=== PATIENT | female | born 1955 | race American Indian/Alaskan Native ===

== ENCOUNTER 2017-04-02 10:17 | Emergency (ER) | payer OTHER ==
[~2017-04-02] VITALS: Ht 167.6 cm; Wt 87.0 kg
[~2017-04-02 10:17] MED LIST: ACET-1600 PO; ALPR0.254 PO; CHOL10002; CHOL10002 PO; EZET1TAB5 PO; GLIM4TAB2 PO; INSU100I13 IJ; INSU100I13 SC; INSU100I17 IJ; INSULIN NOVALOG SC; LISI-167 PO; LISI40TA PO; METF10002 PO
[2017-04-02 10:58] LABS: PH, VENOUS 7.408 pH (7.320-7.420)
[2017-04-02 10:59] LABS: HEMATOCRIT 47.8 % (34.6-47.8); HEMOGLOBIN 15.6 g/dL (11.7-16.4); WHITE BLOOD COUNT 6.8 x10^3/uL (3.4-10)
[2017-04-02] MEDS ORDERED: SODIUM CHLORIDE 0.9% 1,000ML IVBOLUS ONE ×2 (11:00→12:30)
[2017-04-02] MEDS ORDERED: ONDANSETRON 2MG/ML, 2ML IVPush ONE (11:00)
[2017-04-02 11:11] LABS: ASPARTATE AMINO TRANSFERASE 25 U/L (15-37); BLOOD UREA NITROGEN 9 mg/dL (7-18)
[2017-04-02] MEDS ORDERED: ONDANSETRON 2MG/ML, 2ML ONE (11:40)
[2017-04-02 15:01] VITALS: BP 116/60
== END 2017-04-02 15:04 | disposition home or self-care (01) ==
LOC: ED 11:25
DX: R19.7 Diarrhea, unspecified (principal); R11.0 Nausea; I10 Essential (primary) hypertension; E11.9 Type 2 diabetes mellitus without complications; K21.9 Gastro-esophageal reflux disease without esophagitis
CPT/HCPCS: 31500; 36415; 74020; 80053; 81001; 82010; 82803; 82962; 85025; 87086; 87147; 96361; 96374; 99285; J2405; J7030

== ENCOUNTER 2020-07-28 16:57 | Inpatient (IN) | payer OTHER ==
[~2020-07-28] VITALS: Ht 165.1 cm; Wt 93.1 kg
[~2020-07-28 16:57] MED LIST changes: -ACET-1600 PO; +EZET1TAB35 PO; -EZET1TAB5 PO; -GLIM4TAB2 PO; +GLIM4TAB8 PO
[2020-07-28] MEDS ORDERED: SODIUM CHLORIDE 0.9% 1,000 ML IV SCH (17:30)
--- NOTE | 2020-07-28 17:39 | NUR ---
PT C/O FEELING WEAK. PT HAD A COLD RIGHT BEFORE . PT STARTED TO FEEL BETTER BUT HAS SINCE STARTED TO FEEL WEAKER. PT HAD A RECENT FEVER AND TREATED AT HOME WITH TYLENOL. PT HAD A COUGH BUT THAT STOPPED A WEEK AGO.
[2020-07-28 17:41] LABS: PLATELET (DIC) 542 x10^3/uL (130-400)
[2020-07-28 17:42] LABS: MEAN CORPUSCULAR HEMOGLOBIN 27.9 pg (27.0-34.8); MEAN CORPUSCULAR HGB CONC 32.8 g/dL (32.4-35.8); MEAN PLATELET VOLUME 7.1 fL (7.4-10.4); PLATELET COUNT 553 x10^3/uL (130-400); RED BLOOD COUNT 5.25 x10^6/uL (3.82-5.3); RED CELL DISTRIBUTION WIDTH 15.4 % (9.6-15.2)
[2020-07-28 17:54] LABS: ALBUMIN 2.1 g/dL (3.4-5.0); ANION GAP 14 mmol/L (5-15); CALCIUM 7.5 mg/dL (8.5-10.1); CHLORIDE 93 mmol/L (98-107)
[2020-07-28 17:58] LABS: ALANINE AMINOTRANSFERASE 35 U/L (12-78); ALKALINE PHOSPHATASE 123 U/L (45-117); BILIRUBIN,TOTAL 0.7 mg/dL (0.2-1.0); CREATININE 0.92 mg/dL (0.55-1.02); TOTAL PROTEIN 8.1 g/dL (6.4-8.2)
[2020-07-28 18:22] LABS: D-DIMER (DIC) > 35.20 ug/mlFEU (0.00-0.52); FIBRINOGEN 535 mg/dL (200-340); PROTIME 11.3 Seconds (9.6-11.5); PTT 27 Seconds (25-31)
[2020-07-28] MEDS ORDERED: CEFTRIAXONE PMX 1GM/50ML 50 ML IV ONE (18:30)
[2020-07-28] MEDS ORDERED: AZITHROMYCIN 500 MG in SODIUM CHLORIDE 0.9% 250 ML IV ONE (18:30)
[2020-07-28] MEDS ORDERED: INSULIN REGULAR 100 UNITS/ML, 3ML VIAL SQ-INSULIN SCH (18:30)
[2020-07-28] MEDS ORDERED: CEFTRIAXONE PMX 1GM/50ML 50 ML ONE (18:40)
[2020-07-28 18:53] LABS: MD YES
[2020-07-28 18:55] LABS: <PLATELET ESTIMATE> INCREASED; <PLT MORPHOLOGY> NORMAL PLT MORPH; ANISOCYTOSIS 1+; BANDS%(MANUAL) 11 % (0-7); EOS#(MANUAL) 0.16 x10^3/uL (0.0-0.4); EOS% (MANUAL) 2 % (1-7); LYMPH#(MANUAL) 0.82 x10^3/uL (1-3.4); LYMPHS% (MANUAL) 10 % (22-44); MONOS#(MANUAL) 0.33 x10^3/uL (0.3-2.7); MONOS% (MANUAL) 4 % (2-9); MYELOCYTES# (MANUAL) 0.41 x10^3/uL (0-0); MYELOCYTES% (MANUAL) 5 % (0-0); POLYCHROMASIA 1+; SEG#(MANUAL) 5.58 x10^3/uL (1.8-6.8); SEGS% (MANUAL) 68 % (42-75); SPHEROCYTES 1+
[2020-07-28] MEDS ORDERED: ENOXAPARIN 100 MG/ML SQ SCH (19:00)
--- NOTE | 2020-07-28 19:04 | NUR ---
report from Arabella PACHECO
[2020-07-28] MEDS ORDERED: ACETAMINOPHEN 325 MG TABLET PO PRN (19:30)
[2020-07-28] MEDS ORDERED: POLYETHYLENE GLYCOL 17 GM PACKET PO PRN (19:30)
[2020-07-28] MEDS ORDERED: ONDANSETRON ODT 4 MG PO PRN (19:30)
[2020-07-28] MEDS ORDERED: BISACODYL 10 MG SUPP PR PRN (19:30)
[2020-07-28] MEDS ORDERED: GUAIFENESIN/DM 200-20MG, 10ML UDC PO PRN (19:30)
[2020-07-28] MEDS ORDERED: INSULIN SINGLE DOSE, ER ONE (19:38)
[2020-07-28] MEDS ORDERED: ENOXAPARIN 40 MG/0.4 ML ONE (19:38)
[2020-07-28] MEDS ORDERED: ENOXAPARIN 100 MG/ML ONE (19:42)
--- NOTE | 2020-07-28 20:05 | NUR ---
per dr hoskins dc 15 units regular insulin since [facility] has seen pt. pts blood sugar 436. [facility] meme rahman stated no need to get stat glucose from lab draw, give 20 units humalog pen now and continue sliding scale. order verified. humalog slip request sent to lab and phone call placed.
--- NOTE | 2020-07-28 20:16 | NUR ---
TASK RN. 20 UNITS OF HUMALOG INSULIN PEN VERIFIED WITH PRIMARY RN KD LAZARO. PRIMARY RN TO ADMIN MED TO PT
[2020-07-28] MEDS: INSULIN LISPRO 100 UNITS/ML, PEN SQ-INSULIN SCH (20:19)
[2020-07-28 20:25] LABS: ESTIMATED AVERAGE GLUCOSE 355 mg/dL (0-126)
[2020-07-28 20:35] LABS: FREE T4 (FREE THYROXINE) 0.63 ng/dL (0.76-1.46)
--- NOTE | 2020-07-28 20:53 | NUR ---
report given to kirk chapin
--- NOTE | 2020-07-28 21:03 | NUR ---
iv fluids still infusing for admit
[2020-07-28] MEDS ORDERED: DEXAMETHASONE 4 MG/ML, 1ML IVPush ONE (21:15)
[2020-07-28] MEDS ORDERED: DEXAMETHASONE 4 MG/ML, 5ML ONE ×2 (21:36→21:43)
[2020-07-28] MEDS: metFORMIN 500 MG TABLET PO SCH (22:09)
[2020-07-28] MEDS: GLIMEPIRIDE 4 MG TABLET PO SCH (22:18)
[2020-07-28 22:26] VITALS: BP 94/60
[2020-07-28] MEDS ORDERED: OMNIPAQUE 350 MG/ML, 100ML BOTTLE ONE (23:00)
[2020-07-29 01:15] VITALS: BP 97/63
[2020-07-29] MEDS: SODIUM CHLORIDE 0.9% 1,000 ML IV SCH ×3 (01:38→17:10)
[2020-07-29 05:16] LABS: MEAN CORPUSCULAR HEMOGLOBIN 28.3 pg (27.0-34.8); MEAN CORPUSCULAR HGB CONC 33.3 g/dL (32.4-35.8); MEAN PLATELET VOLUME 7.2 fL (7.4-10.4); PLATELET COUNT 519 x10^3/uL (130-400); RED BLOOD COUNT 4.67 x10^6/uL (3.82-5.3); RED CELL DISTRIBUTION WIDTH 15.6 % (9.6-15.2)
[2020-07-29 05:31] LABS: CHLORIDE 97 mmol/L (98-107)
[2020-07-29 05:39] LABS: ANION GAP 10 mmol/L (5-15); CALCIUM 7.3 mg/dL (8.5-10.1); CREATININE 0.88 mg/dL (0.55-1.02)
[2020-07-29 05:53] LABS: MD YES
[2020-07-29 05:55] LABS: ANISOCYTOSIS 1+; BAND#(MANUAL) 0.47 x10^3/uL; BANDS%(MANUAL) 5 % (0-7); LYMPH#(MANUAL) 1.02 x10^3/uL (1-3.4); LYMPHS% (MANUAL) 11 % (22-44); METAMYELOCYTES# (MANUAL) 0.19 x10^3/uL (0-0); METAMYELOCYTES% (MANUAL) 2 % (0-1); MONOS#(MANUAL) 0.19 x10^3/uL (0.3-2.7); MONOS% (MANUAL) 2 % (2-9); MYELOCYTES# (MANUAL) 0.09 x10^3/uL (0-0); MYELOCYTES% (MANUAL) 1 % (0-0); POLYCHROMASIA 1+; SEG#(MANUAL) 7.35 x10^3/uL (1.8-6.8); SEGS% (MANUAL) 79 % (42-75)
[2020-07-29 05:56] LABS: <PLATELET ESTIMATE> INCREASED; <PLT MORPHOLOGY> NORMAL PLT MORPH
[2020-07-29 07:03] VITALS: BP 102/63
[2020-07-29] MEDS: INSULIN LISPRO 100 UNITS/ML, PEN SQ-INSULIN SCH ×4 (08:09→20:19)
[2020-07-29] MEDS: SENNA/DOCUSATE TABLET PO SCH (09:00)
[2020-07-29] MEDS: metFORMIN 500 MG TABLET PO SCH (10:00)
[2020-07-29] MEDS: LISINOPRIL 40 MG TABLET PO SCH (10:00)
[2020-07-29] MEDS: EZETIMIBE 10 MG TABLET PO SCH (10:00)
[2020-07-29] MEDS: SIMVASTATIN 40 MG TABLET PO SCH (10:00)
[2020-07-29] MEDS: INSULIN GLARGINE 100 UNITS/ML, PEN SQ-INSULIN SCH (10:01)
[2020-07-29] MEDS: CHOLECALCIFEROL 1,000 UNIT TABLET PO SCH (10:02)
[2020-07-29] MEDS: GLIMEPIRIDE 4 MG TABLET PO SCH ×2 (10:02→19:54)
[2020-07-29] MEDS: ENOXAPARIN 100 MG/ML SQ SCH ×2 (10:02→21:07)
[2020-07-29 14:13] VITALS: BP 100/62
[2020-07-29] MEDS ORDERED: INSULIN REGULAR 100 UNITS/ML, 3ML VIAL SQ-INSULIN ONE (15:30)
[2020-07-29] MEDS: CEFTRIAXONE PMX 1GM/50ML 50 ML IV SCH (18:38)
[2020-07-29] MEDS ORDERED: DEXAMETHASONE 4 MG/ML, 5ML ONE (19:47)
[2020-07-29] MEDS: DEXAMETHASONE 4 MG/ML, 1ML IVPush SCH (19:55)
[2020-07-29] MEDS: AZITHROMYCIN 500 MG in SODIUM CHLORIDE 0.9% 250 ML IV SCH (20:19)
[2020-07-29 20:32] VITALS: BP 102/60
[2020-07-30 00:13] VITALS: BP 105/64
[2020-07-30] MEDS: MELATONIN 5 MG TABLET PO PRN ×2 (00:46→21:50)
[2020-07-30] MEDS: SODIUM CHLORIDE 0.9% 1,000 ML IV SCH ×3 (02:25→19:00)
[2020-07-30] MEDS: THYROID 30 MG TABLET PO SCH (05:52)
[2020-07-30 07:19] LABS: BASOPHILS % (AUTO) 1 % (0-1); EOSINOPHILS % (AUTO) 0 % (1-7); LYMPHOCYTES % (AUTO) 11 % (22-44); MEAN CORPUSCULAR HEMOGLOBIN 28.2 pg (27.0-34.8); MEAN CORPUSCULAR HGB CONC 33.4 g/dL (32.4-35.8); MEAN PLATELET VOLUME 7.3 fL (7.4-10.4); MONOCYTES % (AUTO) 7 % (2-9); NEUTROPHILS % (AUTO) 81 % (42-75); PLATELET COUNT 510 x10^3/uL (130-400); RED BLOOD COUNT 4.34 x10^6/uL (3.82-5.3); RED CELL DISTRIBUTION WIDTH 15.2 % (9.6-15.2)
[2020-07-30 07:26] LABS: MD NO
[2020-07-30 07:29] LABS: ANION GAP 7 mmol/L (5-15); CALCIUM 7.2 mg/dL (8.5-10.1); CHLORIDE 104 mmol/L (98-107)
[2020-07-30 07:32] LABS: ALANINE AMINOTRANSFERASE 27 U/L (12-78); ALKALINE PHOSPHATASE 106 U/L (45-117); BILIRUBIN,TOTAL 0.3 mg/dL (0.2-1.0); TOTAL PROTEIN 6.8 g/dL (6.4-8.2)
[2020-07-30] MEDS: INSULIN LISPRO 100 UNITS/ML, PEN SQ-INSULIN SCH ×4 (07:32→21:50)
[2020-07-30 07:33] LABS: BILIRUBIN, DIRECT < 0.1 mg/dL (0.1-0.2); BILIRUBIN,INDIRECT 0.2 mg/dL (0.0-2.0)
[2020-07-30 07:39] VITALS: BP 113/72
[2020-07-30] MEDS ORDERED: REMDESIVIR 200 MG in SODIUM CHLORIDE 0.9% 250 ML IVPB ONE (08:00)
[2020-07-30] MEDS ORDERED: DEXAMETHASONE 4 MG/ML, 5ML ONE (08:15)
[2020-07-30] MEDS: INSULIN GLARGINE 100 UNITS/ML, PEN SQ-INSULIN SCH (08:26)
[2020-07-30] MEDS: SENNA/DOCUSATE TABLET PO SCH (08:27)
[2020-07-30] MEDS: SIMVASTATIN 40 MG TABLET PO SCH (08:27)
[2020-07-30] MEDS: ENOXAPARIN 100 MG/ML SQ SCH ×2 (08:27→20:54)
[2020-07-30] MEDS: CHOLECALCIFEROL 1,000 UNIT TABLET PO SCH (08:27)
[2020-07-30] MEDS: LISINOPRIL 40 MG TABLET PO SCH (08:28)
[2020-07-30] MEDS: GLIMEPIRIDE 4 MG TABLET PO SCH ×2 (08:28→20:54)
[2020-07-30] MEDS: EZETIMIBE 10 MG TABLET PO SCH (08:28)
[2020-07-30 13:27] VITALS: BP 101/72
[2020-07-30] MEDS: CEFTRIAXONE PMX 1GM/50ML 50 ML IV SCH (18:27)
[2020-07-30 18:44] VITALS: BP 110/70
[2020-07-30] MEDS: DEXAMETHASONE 4 MG/ML, 1ML IVPush SCH (20:07)
[2020-07-30] MEDS: AZITHROMYCIN 500 MG in SODIUM CHLORIDE 0.9% 250 ML IV SCH (20:07)
[2020-07-30] MEDS ORDERED: INSULIN GLARGINE 100 UNITS/ML, PEN SQ-INSULIN SCH (21:00)
[2020-07-31 00:49] VITALS: BP 108/75
[2020-07-31] MEDS: SODIUM CHLORIDE 0.9% 1,000 ML IV SCH ×2 (03:00→15:29)
[2020-07-31] MEDS: THYROID 30 MG TABLET PO SCH (05:06)
[2020-07-31 06:31] LABS: CHLORIDE 107 mmol/L (98-107)
[2020-07-31 06:42] LABS: ALANINE AMINOTRANSFERASE 25 U/L (12-78); ALKALINE PHOSPHATASE 88 U/L (45-117); ANION GAP 6 mmol/L (5-15); BILIRUBIN,TOTAL 0.3 mg/dL (0.2-1.0); CALCIUM 7.2 mg/dL (8.5-10.1); CREATININE 0.49 mg/dL (0.55-1.02); TOTAL PROTEIN 6.4 g/dL (6.4-8.2)
[2020-07-31] MEDS: INSULIN LISPRO 100 UNITS/ML, PEN SQ-INSULIN SCH ×4 (07:38→20:57)
[2020-07-31 08:38] VITALS: BP 116/76
[2020-07-31] MEDS: EZETIMIBE 10 MG TABLET PO SCH (08:43)
[2020-07-31] MEDS: LISINOPRIL 40 MG TABLET PO SCH (08:43)
[2020-07-31] MEDS: REMDESIVIR 100 MG in SODIUM CHLORIDE 0.9% 250 ML IVPB SCH (08:43)
[2020-07-31] MEDS: CHOLECALCIFEROL 1,000 UNIT TABLET PO SCH (08:43)
[2020-07-31] MEDS: SIMVASTATIN 40 MG TABLET PO SCH (08:43)
[2020-07-31] MEDS: SENNA/DOCUSATE TABLET PO SCH (08:43)
[2020-07-31] MEDS: GLIMEPIRIDE 4 MG TABLET PO SCH ×2 (08:43→20:48)
[2020-07-31] MEDS: ENOXAPARIN 100 MG/ML SQ SCH ×2 (08:45→20:49)
[2020-07-31] MEDS ORDERED: INSULIN GLARGINE 100 UNITS/ML, PEN SQ-INSULIN SCH ×2 (09:00→21:00)
[2020-07-31 13:34] VITALS: BP 123/81
[2020-07-31] MEDS: CEFTRIAXONE PMX 1GM/50ML 50 ML IV SCH (18:02)
[2020-07-31 18:39] VITALS: BP 138/82
[2020-07-31] MEDS: DEXAMETHASONE 4 MG/ML, 1ML IVPush SCH (20:48)
[2020-07-31] MEDS: AZITHROMYCIN 500 MG in SODIUM CHLORIDE 0.9% 250 ML IV SCH (20:50)
[2020-07-31] MEDS: MELATONIN 5 MG TABLET PO PRN (23:59)
[2020-08-01 00:26] VITALS: BP 118/76
[2020-08-01] MEDS: THYROID 30 MG TABLET PO SCH (05:29)
[2020-08-01 06:35] LABS: CHLORIDE 103 mmol/L (98-107)
[2020-08-01 06:42] LABS: ALANINE AMINOTRANSFERASE 35 U/L (12-78); ALBUMIN 2.3 g/dL (3.4-5.0); ALKALINE PHOSPHATASE 87 U/L (45-117); ANION GAP 6 mmol/L (5-15); BILIRUBIN,TOTAL 0.4 mg/dL (0.2-1.0); CREATININE 0.59 mg/dL (0.55-1.02); TOTAL PROTEIN 7.1 g/dL (6.4-8.2)
[2020-08-01 07:10] VITALS: BP 130/81
[2020-08-01] MEDS: INSULIN LISPRO 100 UNITS/ML, PEN SQ-INSULIN SCH ×4 (07:34→20:38)
[2020-08-01 08:42] LABS: C-REACTIVE PROTEIN, QUANT 2.07 mg/dL (0.02-0.49)
[2020-08-01] MEDS: REMDESIVIR 100 MG in SODIUM CHLORIDE 0.9% 250 ML IVPB SCH (08:42)
[2020-08-01] MEDS: EZETIMIBE 10 MG TABLET PO SCH (08:42)
[2020-08-01] MEDS: CHOLECALCIFEROL 1,000 UNIT TABLET PO SCH (08:42)
[2020-08-01] MEDS: SIMVASTATIN 40 MG TABLET PO SCH (08:43)
[2020-08-01] MEDS: GLIMEPIRIDE 4 MG TABLET PO SCH ×2 (08:44→20:38)
[2020-08-01] MEDS: SENNA/DOCUSATE TABLET PO SCH (08:44)
[2020-08-01] MEDS: LISINOPRIL 40 MG TABLET PO SCH (08:44)
[2020-08-01] MEDS: ENOXAPARIN 100 MG/ML SQ SCH ×2 (08:44→20:42)
[2020-08-01] MEDS: INSULIN GLARGINE 100 UNITS/ML, PEN SQ-INSULIN SCH (08:46)
[2020-08-01 09:10] LABS: D-DIMER 3.48 ug/mlFEU (0.00-0.52)
[2020-08-01 12:49] VITALS: BP 101/66
[2020-08-01] MEDS: CEFTRIAXONE PMX 1GM/50ML 50 ML IV SCH (18:39)
[2020-08-01 19:45] VITALS: BP 110/73
[2020-08-01] MEDS: AZITHROMYCIN 500 MG in SODIUM CHLORIDE 0.9% 250 ML IV SCH (19:52)
[2020-08-01] MEDS: DEXAMETHASONE 4 MG/ML, 1ML IVPush SCH (19:52)
[2020-08-01] MEDS: MELATONIN 5 MG TABLET PO PRN (20:38)
[2020-08-01] MEDS ORDERED: INSULIN GLARGINE 100 UNITS/ML, PEN SQ-INSULIN SCH (21:00)
[2020-08-02 02:42] VITALS: BP 115/77
[2020-08-02] MEDS: THYROID 30 MG TABLET PO SCH (05:06)
[2020-08-02 06:38] LABS: CHLORIDE 103 mmol/L (98-107)
[2020-08-02 06:51] LABS: ALANINE AMINOTRANSFERASE 41 U/L (12-78); ALBUMIN 2.3 g/dL (3.4-5.0); ALKALINE PHOSPHATASE 81 U/L (45-117); ANION GAP 8 mmol/L (5-15); BILIRUBIN,TOTAL 0.3 mg/dL (0.2-1.0); CALCIUM 8.3 mg/dL (8.5-10.1); CREATININE 0.58 mg/dL (0.55-1.02); TOTAL PROTEIN 7.1 g/dL (6.4-8.2)
[2020-08-02] MEDS: INSULIN LISPRO 100 UNITS/ML, PEN SQ-INSULIN SCH ×4 (08:07→21:58)
[2020-08-02 08:25] VITALS: BP 103/70
[2020-08-02] MEDS: LISINOPRIL 40 MG TABLET PO SCH (08:46)
[2020-08-02] MEDS: CHOLECALCIFEROL 1,000 UNIT TABLET PO SCH (08:46)
[2020-08-02] MEDS: SENNA/DOCUSATE TABLET PO SCH (08:46)
[2020-08-02] MEDS: GLIMEPIRIDE 4 MG TABLET PO SCH ×2 (08:46→21:52)
[2020-08-02] MEDS: SIMVASTATIN 40 MG TABLET PO SCH (08:46)
[2020-08-02] MEDS: EZETIMIBE 10 MG TABLET PO SCH (08:46)
[2020-08-02] MEDS: ENOXAPARIN 100 MG/ML SQ SCH ×2 (08:47→21:51)
[2020-08-02] MEDS: REMDESIVIR 100 MG in SODIUM CHLORIDE 0.9% 250 ML IVPB SCH (09:05)
[2020-08-02] MEDS: INSULIN GLARGINE 100 UNITS/ML, PEN SQ-INSULIN SCH ×2 (09:07→21:59)
[2020-08-02 14:22] VITALS: BP 113/71
[2020-08-02] MEDS: DEXAMETHASONE 4 MG/ML, 1ML IVPush SCH (17:45)
[2020-08-02] MEDS: CEFTRIAXONE PMX 1GM/50ML 50 ML IV SCH (17:45)
[2020-08-02] MEDS: AZITHROMYCIN 500 MG in SODIUM CHLORIDE 0.9% 250 ML IV SCH (20:01)
[2020-08-02 20:04] VITALS: BP 123/81
[2020-08-02] MEDS: MELATONIN 5 MG TABLET PO PRN (21:52)
[2020-08-03 02:22] VITALS: BP 109/69
[2020-08-03 05:43] VITALS: BP 110/73
[2020-08-03] MEDS: THYROID 30 MG TABLET PO SCH (05:45)
[2020-08-03 06:01] LABS: ALANINE AMINOTRANSFERASE 46 U/L (12-78); ALBUMIN 2.4 g/dL (3.4-5.0); ANION GAP 6 mmol/L (5-15); CALCIUM 8.6 mg/dL (8.5-10.1); CHLORIDE 103 mmol/L (98-107); CREATININE 0.57 mg/dL (0.55-1.02)
[2020-08-03 06:04] LABS: ALKALINE PHOSPHATASE 74 U/L (45-117); BILIRUBIN,TOTAL 0.3 mg/dL (0.2-1.0); TOTAL PROTEIN 6.8 g/dL (6.4-8.2)
[2020-08-03 07:49] VITALS: BP 107/68
[2020-08-03] MEDS: EZETIMIBE 10 MG TABLET PO SCH (09:46)
[2020-08-03] MEDS: INSULIN LISPRO 100 UNITS/ML, PEN SQ-INSULIN SCH ×4 (09:46→21:10)
[2020-08-03] MEDS: REMDESIVIR 100 MG in SODIUM CHLORIDE 0.9% 250 ML IVPB SCH (09:46)
[2020-08-03] MEDS: SIMVASTATIN 40 MG TABLET PO SCH (09:47)
[2020-08-03] MEDS: CHOLECALCIFEROL 1,000 UNIT TABLET PO SCH (09:47)
[2020-08-03] MEDS: GLIMEPIRIDE 4 MG TABLET PO SCH ×2 (09:47→21:08)
[2020-08-03] MEDS: ENOXAPARIN 100 MG/ML SQ SCH ×2 (09:48→21:11)
[2020-08-03] MEDS: SENNA/DOCUSATE TABLET PO SCH (09:48)
[2020-08-03] MEDS: INSULIN GLARGINE 100 UNITS/ML, PEN SQ-INSULIN SCH ×2 (09:49→21:09)
[2020-08-03] MEDS: LISINOPRIL 40 MG TABLET PO SCH (10:08)
[2020-08-03 14:37] VITALS: BP 97/58
[2020-08-03] MEDS: CEFTRIAXONE PMX 1GM/50ML 50 ML IV SCH (18:12)
[2020-08-03 20:19] VITALS: BP 97/65
[2020-08-03] MEDS: DEXAMETHASONE 4 MG/ML, 1ML IVPush SCH (20:43)
[2020-08-03] MEDS: AZITHROMYCIN 500 MG in SODIUM CHLORIDE 0.9% 250 ML IV SCH (20:44)
[2020-08-03] MEDS: MELATONIN 5 MG TABLET PO PRN (21:08)
[2020-08-04 00:53] VITALS: BP 109/71
[2020-08-04] MEDS: THYROID 30 MG TABLET PO SCH (06:09)
[2020-08-04 07:47] VITALS: BP 135/62
[2020-08-04] MEDS: SIMVASTATIN 40 MG TABLET PO SCH (08:21)
[2020-08-04] MEDS: SENNA/DOCUSATE TABLET PO SCH (08:21)
[2020-08-04] MEDS: EZETIMIBE 10 MG TABLET PO SCH (08:21)
[2020-08-04] MEDS: LISINOPRIL 40 MG TABLET PO SCH (08:21)
[2020-08-04] MEDS: CHOLECALCIFEROL 1,000 UNIT TABLET PO SCH (08:21)
[2020-08-04] MEDS: GLIMEPIRIDE 4 MG TABLET PO SCH (08:21)
[2020-08-04] MEDS: ENOXAPARIN 100 MG/ML SQ SCH (08:22)
[2020-08-04] MEDS: INSULIN LISPRO 100 UNITS/ML, PEN SQ-INSULIN SCH ×3 (09:14→16:19)
[2020-08-04] MEDS: INSULIN GLARGINE 100 UNITS/ML, PEN SQ-INSULIN SCH (09:33)
[2020-08-04] MEDS ORDERED: ALPR0.254 PO (15:48)
[2020-08-04] MEDS ORDERED: ACET-1600 PO (15:49)
[2020-08-04 16:00] VITALS: BP 96/62
[2020-08-04] MEDS ORDERED: DEXA4TAB66 PO ×3 (16:47→17:09)
[2020-08-04] MEDS ORDERED: DOXY100T PO (16:47)
[2020-08-04] MEDS: CEFTRIAXONE PMX 1GM/50ML 50 ML IV SCH (17:17)
[2020-08-04] MEDS: DEXAMETHASONE 4 MG/ML, 1ML IVPush SCH (18:36)
== END 2020-08-04 20:00 | disposition home or self-care (01) | DRG 177 ==
LOC: ED 18:46 → EDIP 18:53 → ED 20:17 → 3N 21:10
PROVIDERS: ADMIT Family Medicine; ATTEND Internal Medicine
PROC: XW033E5 Introduction of Remdesivir Anti-infective into Peripheral Vein, Percutaneous Approach, New Technology Group 5 (ICD-10-PCS; principal; 2020-07-30)
DX: U07.1 COVID-19 (principal); J12.89 Other viral pneumonia; J96.01 Acute respiratory failure with hypoxia; E87.1 Hypo-osmolality and hyponatremia; D72.810 Lymphocytopenia; E11.65 Type 2 diabetes mellitus with hyperglycemia; E78.5 Hyperlipidemia, unspecified; E87.8 Other disorders of electrolyte and fluid balance, not elsewhere classified; E89.0 Postprocedural hypothyroidism; F41.9 Anxiety disorder, unspecified; I10 Essential (primary) hypertension; R79.89 Other specified abnormal findings of blood chemistry; Z79.4 Long term (current) use of insulin; Z79.899 Other long term (current) drug therapy; Z83.3 Family history of diabetes mellitus; Z90.49 Acquired absence of other specified parts of digestive tract; Z80.42 Family history of malignant neoplasm of prostate
CPT/HCPCS: 36415; 71045; 71275; 80048; 80053; 80069; 80076; 82728; 82947; 82962; 83036; 83605; 83615; 83735; 84145; 84439; 84443; 84481; 85025; 85049; 85379; 85384; 85610; 85730; 86140; 87040; 93005; 96374; 96375; 99285; G0378; J0456; J0696; J1100; J1650; J1815; Q9967; J7030; J7050; U0003